=== PATIENT | female | born 1980 | race Caucasian/White ===

== ENCOUNTER 2017-08-19 10:17 | Emergency (ER) | payer BC ==
[~2017-08-19] VITALS: Ht 160 cm; Wt 55.0 kg
[2017-08-19] MEDS ORDERED: PRENANTAL (11:56)
[2017-08-19 13:20] VITALS: BP 104/54
== END 2017-08-19 13:21 | disposition home or self-care (01) ==
LOC: ED 12:46
DX: O03.9 Complete or unspecified spontaneous abortion without complication (principal); Z3A.08 8 weeks gestation of pregnancy
CPT/HCPCS: 36415; 76801; 84702; 86901; 99285